=== PATIENT | female | born 1955 | race Caucasian/White ===

== ENCOUNTER → 2018-04-05 | Outpatient (CLI) | payer BC ==
[~2018-04-05] MED LIST: LIDOCAINE HCL 1% LOCAL INJ 20 ML VIAL ONE; NOVOLOG MIX SQ; Z.0.AMLODIPINE BESYL PO; Z.0.CLONIDINE HCL0.2 PO; Z.0.LIPITOR20 MG PO; Z.0.LORAZEPAM1 MG PO; Z.0.METFORMIN HCL500 PO; Z.0.OMEPRAZOLE40 MG PO; Z.0.SOMA350 MG PO; Z.0.ZOLOFT50 MG PO; Z.1.DIOVAN HCT 1601 PO
[2018-04-05 10:03] LABS: INR 0.89; PROTHROMBIN TIME 12.9 seconds (11.9-14.5)
[2018-04-05 10:04] LABS: PARTIAL THROMBOPLASTIN TIME 28.4 seconds (23.8-35.5)
[2018-04-05 12:12] LABS: APPEARANCE,CSF CLEAR (CLEAR); COLOR,CSF COLORLESS (COLORLESS); TUBE NUMBER 3
[2018-04-05 12:13] LABS: WHITE BLOOD CELL,CSF 0 cells/uL (0-5)
--- NOTE | 2018-04-05 12:51 | Diagnostic Imaging Report ---
EXAMINATION: Fluoroscopically-guided lumbar puncture HISTORY: Papilledema TECHNIQUE: medication: None. anesthesia: 1% lidocaine, 5 cc needle: 22 gauge x 5 inch spinal fluoro time: 2.9 minutes DAP: 224.5 microGy-m2 PROCEDURE: After giving informed consent, the patient lay prone on the examination table. The back was prepped and draped in the usual sterile manner, and then 1% lidocaine was infiltrated in the skin. Incubator Operator radiograph demonstrates cholecystectomy clips, aortic atherosclerosis, and mild degenerative disc and facet degenerative changes of the lower lumbar spine. The spinal needle was advanced through the L4-L5 interspace via a left sided approach until CSF was obtained. Opening pressure obtained was 15 cm H20. Approximately 12 mL of clear fluid was removed and sent to the laboratory for tests ordered by the referring physician. The patient was transferred to the floor in stable condition. FINDINGS: Opening pressure measurement 15 cm H20 CSF: Clear serous IMPRESSION: Fluoroscopically-guided L4-L5 lumbar puncture as above. Signed by: Dr. Matt Martel MD on 04/05/2018 12:47 PM
[2018-04-05 13:50] LABS: TOTAL PROTEIN,CSF 30.2 mg/dL (15-40)
== END ==
LOC: DX 09:02
PROVIDERS: ATTEND Psychiatry & Neurology Neurology
DX: H47.10 Unspecified papilledema (principal)
CPT/HCPCS: 36415; 62270; 77003; 82945; 84157; 85049; 85610; 85730; 89051; J2001

== ENCOUNTER 2022-09-09 18:56 | Emergency (ER) | payer MEDICARE, BC ==
[~2022-09-09] VITALS: Ht 154.9 cm; Wt 113.9 kg
[~2022-09-09 18:56] MED LIST changes: -LIDOCAINE HCL 1% LOCAL INJ 20 ML VIAL ONE
[2022-09-09] MEDS ORDERED: DIPHTH/TETANUS/ACEL. PERTUSSIS 0.5 ML SYR IM ONE ×2 (19:30→20:45)
[2022-09-09] MEDS ORDERED: BACITRACIN ZINC 0.9GM TP ONE (20:15)
[2022-09-09] MEDS ORDERED: TETANUS/DIPHTHERIA TOX ADULT 0.5 ML SYR ONE (20:15)
[2022-09-09] MEDS ORDERED: CEPHALEXIN500 MG PO (20:20)
[2022-09-09] MEDS ORDERED: CEPHALEXIN 500 MG CAP PO ONE (20:30)
[2022-09-09 20:47] VITALS: BP 165/60
== END 2022-09-09 20:51 | disposition home or self-care (01) ==
LOC: ER 19:00
DX: S61.211A Laceration without foreign body of left index finger without damage to nail, initial encounter (principal); W26.0XXA Contact with knife, initial encounter; Y93.G3 Activity, cooking and baking; Y92.89 Other specified places as the place of occurrence of the external cause; E78.00 Pure hypercholesterolemia, unspecified
CPT/HCPCS: 90471; 90714; 99284